=== PATIENT | male | born 2005 | race Caucasian/White ===

== ENCOUNTER → 2025-02-13 15:38 | Outpatient (REF) | payer OTHER, SELFPAY | LOC: HWRCS 15:38 | PROVIDERS: ATTENDING PHYSICIAN Internal Medicine Cardiovascular Disease; FAMILY PHYSICIAN Family Medicine | DX: R00.2 Palpitations (principal) | CPT/HCPCS: 93306 ==

== ENCOUNTER 2025-05-22 17:07 | Emergency (ER) | payer OTHER, SELFPAY ==
[2025-05-22 17:20] VITALS: BP 149/100
[2025-05-22 17:54] LABS: Hematocrit 34.0 % (39.0-52.0); Hemoglobin 10.6 g/dL (13.0-18.0); Mean Corp Hgb Conc. 31.2 g/dL (33.0-37.0); Mean Corpuscular Volume 89.7 fL (80.0-94.0); Nucleated Red Blood Cells % 0 % (-); Platelet Count 566 10^3/uL (130-400); Red Cell Dist. Width 15.5 % (11.5-14.5)
[2025-05-22 18:09] LABS: ALT (SGPT) 58 U/L (0-50); AST (SGOT) 33 U/L (17-59); Albumin 4.7 g/dl (3.5-5.0); Alkaline Phosphatase 126 U/L (38-126); Blood Urea Nitrogen 15 mg/dl (9-20); Calcium 9.9 mg/dl (8.4-10.2); Carbon Dioxide 29 mmol/L (22-30); Chloride 102 mmol/L (98-107); Glucose 99 mg/dl (70-99); Potassium 4.6 mmol/L (3.5-5.1); Sodium 139 mmol/L (135-145); Total Protein 10.1 g/dl (6.3-8.2); eGFR > 60.00
[2025-05-22 21:05] VITALS: BP 133/68
[2025-05-22 21:09] VITALS: BMI 18.5
[2025-05-22 21:45] VITALS: BP 135/79
[2025-05-22 22:30] VITALS: BP 133/73
[2025-05-22 23:00] VITALS: BP 133/82
[2025-05-23] MEDS: TRANEXAMIC ACID 250 MG INH (00:56)
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
[2025-05-23 01:27] VITALS: BP 124/75
== END 2025-05-23 01:45 | disposition home or self-care (01) ==
LOC: EMR 17:07
PROVIDERS: Emergency Medicine; EMERGENCY PHYSICIAN Emergency Medicine; FAMILY PHYSICIAN Internal Medicine
DX: R04.2 Hemoptysis (principal); D64.9 Anemia, unspecified; J86.0 Pyothorax with fistula; Z87.828 Personal history of other (healed) physical injury and trauma
CPT/HCPCS: 94640; 99284; 71046; 71275; 80053; 85025; Q9967